=== PATIENT | female | born 1945 | race Caucasian/White ===

== ENCOUNTER 2021-03-30 17:03 | Inpatient (IN) ==
[2021-03-30] MEDS ORDERED: IOPAMIDOL 100 ML BOTTLE IV ONE ×2 (17:04→22:15)
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
[2021-03-30] MEDS: morphine 2 MG/ML VIAL IV ONE ×2 (17:38→17:40)
[2021-03-30] MEDS ORDERED: ACETAMINOPHEN 1,000 MG/100 ML BAG IV ONE (17:43)
[2021-03-30 18:27] LABS: Basophils # (Auto) 0.02 K/mcL (0.00-0.20); Basophils % (Auto) 0.2 % (0.0-2.0); Eosinophils # (Auto) 0.09 K/mcL (0.00-0.70); Eosinophils % (Auto) 0.8 % (0.0-7.0); Hematocrit 41.2 % (36.0-48.0); Hemoglobin 13.8 g/dL (12.0-15.0); Lymphocytes # (Auto) 1.26 K/mcL (1.50-4.80); Lymphocytes % (Auto) 11.9 % (15.0-49.0); Mean Corpuscular HGB Conc 33.5 g/dL (31.0-36.0); Mean Platelet Volume 9.4 fL (7.4-10.4); Monocytes # (Auto) 0.77 K/mcL (0.10-0.90); Monocytes % (Auto) 7.3 % (1.0-12.0); Neutrophils % (Auto) 79.8 % (38.0-78.0); Platelet Count 252 K/mcL (140-440); RBC 4.48 M/mcL (4.00-5.20); Red Cell Distribution Width 13.2 % (11.5-14.5); WBC 10.6 K/mcL (4.5-11.0)
[2021-03-30 18:50] LABS: Blood Urea Nitrogen 9 mg/dL (8-23); Calcium 9.1 mg/dL (8.6-10.4); Carbon Dioxide 22 mmol/L (22-30); Chloride 98 mmol/L (96-108); Glomerular Filtration Rate 94; Glucose 122 mg/dL (70-105)
[2021-03-30 19:06] LABS: INR 1.1 (0.9-1.1); Prothrombin Time 14.4 sec (11.9-14.5)
--- NOTE | 2021-03-30 20:40 | XRay Report ---
CLINICAL INFORMATION: Chest pain COMPARISON: 11/22/2018 FINDINGS: Moderate cardiomegaly is unchanged. Mediastinum and pulmonary vessels are normal. Small right basilar infiltrate with small right pleural effusion noted. IMPRESSION: Small right basilar infiltrate with small right pleural effusion Moderate cardiomegaly - stable Interpreted and Authenticated by: Faisal Shahid 03/30/21
--- NOTE | 2021-03-30 20:55 | Cat Scan Report ---
CLINICAL INFORMATION: Chest pain COMPARISON: None. TECHNIQUE: 80ml of Isovue-370 were injected intravenously. Using SmartPrep to maximize pulmonary artery opacification, .625mm helical slices were obtained from the lung apices through the lung bases. Following reconstruction, 2.5 mm sagittal, coronal, and axial reformations were processed. The exam was reviewed at mediastinal, lung, and bone windows. The exam was performed using radiation dose optimization techniques including, but not limited to, automated exposure control, adjustment of the mA and/or kV according to patient size and use of iterative reconstruction technique. FINDINGS: Mediastinal windows show moderate enlargement of the central pulmonary arteries consistent with pulmonary hypertension: the main pulmonary artery diameter 3.6 cm. Acute occlusive emboli within the interlobar and right lower lobe arteries with extension to the medial, posterior, lateral and anterior basilar segmental right lower lobe arteries. Subocclusive emboli extends to the posterior segment right upper lobe artery. On left side, occlusive emboli in the posterior basilar segment left lower lobe artery. The heart is moderately enlarged with asymmetric enlargement of the right atrium and ventricle suggesting elevated right heart pressures. The esophagus is grossly normal. There is no adenopathy in the mediastinal, hilar or axillary regions. Right hemithyroidectomy changes noted with asymmetric enlargement of the solitary left thyroid lobe. Left thyroid lobe is heterogeneous Pulmonary parenchymal windows show moderate patchy alveolar infiltrate in the right lower lobe with small right pleural effusion. There is subsegmental atelectasis in the left lower lobe. Mosaic perfusion pattern elevated lung volumes wall thickening the bronchi has underlying chronic bronchitis and bronchiolitis. Bone windows show mild chronic wedging throughout nearly all the vertebral bodies consistent with compression chronic compression fractures. Images should the superior abdomen show no abnormality. IMPRESSION: 1. Occlusive emboli in the right interlobar and lower lobe pulmonary arteries with extension into all of the right lower lobe segmental branches. There is also subocclusive embolus in the posterior segmental branch right upper lobe pulmonary artery. On the left side, there occlusive emboli in the posterior basilar segmental branch left lower lobe. Moderate central pulmonary artery enlargement with asymmetric leg enlargement of the right heart chambers is compatible elevated pulmonary artery pressures related emboli. Patient also has chronic bronchitis and bronchiolitis potentially contributing to pulmonary hypertension 2. Moderate patchy infiltrate right lower lobe with small right pleural effusion. Subsegmental atelectasis left lower lobe. Interpreted and Authenticated by: Faisal Shahid 03/30/21
[2021-03-30] MEDS ORDERED: ENOXAPARIN 30 MG/0.3 ML SYRINGE SQ STA (21:15)
[2021-03-30] MEDS ORDERED: ENOXAPARIN 100 MG/ML SYRINGE SQ ONE (21:19)
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
[2021-03-30] MEDS: 0.9 % SODIUM CHLORIDE 1,000 ML IV SCH ×3 (21:51→23:19)
[2021-03-30] MEDS ORDERED: 0.9 % SODIUM CHLORIDE 1,000 ML IV SCH ×2 (22:00→22:15)
[2021-03-30] MEDS ORDERED: ZOLPIDEM 5 MG TABLET PO PRN (22:15)
[2021-03-30] MEDS ORDERED: ONDANSETRON 4 MG ODT TABLET SL PRN (22:15)
[2021-03-30] MEDS ORDERED: ONDANSETRON 4 MG/2 ML VIAL IV PRN (22:15)
[2021-03-30] MEDS ORDERED: ALBUTEROL SULFATE 2.5 MG/3 ML NEBULIZER NEB PRN (22:15)
[2021-03-30] MEDS ORDERED: MAGNESIUM HYDROXIDE 30 ML ORAL.SUSP PO PRN (22:15)
[2021-03-30] MEDS ORDERED: ACETAMINOPHEN 325 MG TABLET PO PRN (22:15)
[2021-03-30] MEDS ORDERED: oxyCODONE HCL 5 MG TABLET PO ONE (22:53)
[2021-03-30] MEDS: oxyCODONE HCL 5 MG TABLET PO PRN (22:54)
[2021-03-30] MEDS: 0.9 % SODIUM CHLORIDE 10 ML SYRINGE IV SCH (22:59)
[2021-03-31] MEDS ORDERED: ZOLPIDEM 5 MG TABLET ONE (00:33)
[2021-03-31] MEDS: oxyCODONE HCL 5 MG TABLET PO PRN ×4 (02:11→20:42)
[2021-03-31] MEDS ORDERED: oxyCODONE HCL 5 MG TABLET PO ONE ×2 (02:12→05:15)
[2021-03-31] MEDS ORDERED: morphine 2 MG/ML VIAL ONE ×2 (02:57→07:06)
[2021-03-31] MEDS: morphine 2 MG/ML VIAL IV PRN ×3 (02:59→23:33)
[2021-03-31] MEDS: 0.9 % SODIUM CHLORIDE 10 ML SYRINGE IV SCH ×3 (05:06→20:39)
[2021-03-31 06:28] LABS: Basophils # (Auto) 0.03 K/mcL (0.00-0.20); Basophils % (Auto) 0.2 % (0.0-2.0); Eosinophils # (Auto) 0.05 K/mcL (0.00-0.70); Eosinophils % (Auto) 0.4 % (0.0-7.0); Hematocrit 42.3 % (36.0-48.0); Hemoglobin 13.3 g/dL (12.0-15.0); Lymphocytes # (Auto) 0.75 K/mcL (1.50-4.80); Lymphocytes % (Auto) 6.1 % (15.0-49.0); Mean Cell Volume 96.1 fL (80.0-100.0); Mean Corpuscular HGB Conc 31.4 g/dL (31.0-36.0); Mean Platelet Volume 10.6 fL (7.4-10.4); Monocytes # (Auto) 0.84 K/mcL (0.10-0.90); Monocytes % (Auto) 6.8 % (1.0-12.0); Neutrophils % (Auto) 86.5 % (38.0-78.0); Platelet Count 192 K/mcL (140-440); Red Cell Distribution Width 13.2 % (11.5-14.5); WBC 12.3 K/mcL (4.5-11.0)
[2021-03-31] MEDS: 0.9 % SODIUM CHLORIDE 1,000 ML IV SCH ×2 (07:01→08:52)
[2021-03-31 07:12] LABS: Blood Urea Nitrogen 9 mg/dL (8-23); Calcium 8.9 mg/dL (8.6-10.4); Carbon Dioxide 21 mmol/L (22-30); Chloride 105 mmol/L (96-108); Glomerular Filtration Rate 94; Glucose 108 mg/dL (70-105)
--- NOTE | 2021-03-31 07:14 | Internal Med Progress Note ---
SUBJECTIVE Subjective Patient information: Note initiated : 03/31/21 at 7:09 am Service Date, if different from initiated Date: Patient: Makeda Cheema 75 y/o F admitted on 03/30/21 for Rib pain. Chief Complaint: Chest pain Principal diagnosis: Acute occlusive PE Interval history: Patient still having right-sided chest pain. She did not sleep well last night. Blood pressure remained stable. No hypoxemia. Constitutional Vitals: Vital Signs Temp Pulse Resp BP Pulse Ox 97.3 F 90 20 112/59 92 03/31/21 05:04 03/31/21 05:04 03/31/21 05:04 03/31/21 05:04 03/31/21 05:04 Period Temp Pulse Resp BP Sys/Brown Pulse Ox Last 24 Hr 97.3 F-98.6 F 72-102 16-31 74-149/40-90 92-97 Intake and Output 03/30/21 03/31/21 03/31/21 21:59 05:59 13:59 Intake Total 100 600 Output Total 200 Balance 100 400 Weight 92.986 kg 92.986 kg Intake & Output: Intake & Output 03/30/21 03/31/21 03/31/21 21:59 05:59 13:59 Intake Total 100 600 Output Total 200 Balance 100 400 Weight 92.986 kg 92.986 kg Intake: IV 100 Oral 600 Output: Void Amount 200 Other: # Voids 1 Additional findings Additional findings: General: Pleasant obese female with BMI 37, Awake alert oriented x3. No apparent distress HEENT: PERRLA, moist mucous membrane. Anicteric sclera Lungs: Clear to auscultation bilaterally. No crackles rhonchi or rales. Cardiovascular: Regular rate and rhythm. S1 + S2, 3/6 systolic murmur. No gallop rub. No peripheral edema. No JVD GI: Abdomen soft, nontender, positive bowel sounds. No hepatosplenomegaly. No rebound tenderness. 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 Cranial nerves II through XII 12 grossly intact. Psychiatric: Normal mood and affect OBJ DATA Labs CBC & Chem 7: 03/31/21 05:14 03/31/21 05:14 Labs: Abnormal Lab Results 03/31/21 03/30/21 03/30/21 05:14 17:34 17:34 WBC 12.3 H MPV 10.6 H Neut % (Auto) 86.5 H 79.8 H Lymph % (Auto) 6.1 L 11.9 L Lymph # (Auto) 0.75 L 1.26 L Absolute Neutrophils 10.67 H 8.47 H D-Dimer Creatinine 0.5 L Glucose 122 H 03/30/21 17:33 WBC MPV Neut % (Auto) Lymph % (Auto) Lymph # (Auto) Absolute Neutrophils D-Dimer 3.07 H Creatinine Glucose Meds: Medications Acetaminophen (Acetaminophen 325 Mg Tablet) 650 mg PO Q6HP PRN; Protocol PRN Reason: Per Pain Protocol/Fever > 101 Albuterol Sulfate (Albuterol Sulfate 2.5 Mg/3 Ml Nebulizer) 2.5 mg NEB Q2HP PRN PRN Reason: Shortness Of Breath Enoxaparin Sodium (Enoxaparin 80 Mg/0.8 Ml Syringe) 93 mg SQ BID [facility] Sodium Chloride (Sodium Chloride 0.9%) 1,000 mls @ 100 mls/hr IV .Q10H [facility] Last Admin: 03/30/21 21:54 Dose: 100 mls/hr Documented by: Levothyroxine Sodium (Levothyroxine 100 Mcg Tablet) 100 mcg PO QDAY [facility] Magnesium Hydroxide (Magnesium Hydroxide 30 Ml Oral.Susp) 30 ml PO DAILYP PRN PRN Reason: Constipation Morphine Sulfate (Morphine 2 Mg/Ml Vial) 2 mg IV Q4HP PRN; Protocol PRN Reason: Per Pain Protocol Last Admin: 03/31/21 02:59 Dose: 2 mg Documented by: Non-Formulary Medication (Aspirin [Adult Low Dose Aspirin]) 81 mg PO QDAY [facility] Ondansetron HCl (Ondansetron 4 Mg/2 Ml Vial) 4 mg IV Q6HP PRN PRN Reason: Nausea And Vomiting Ondansetron HCl (Ondansetron 4 Mg Odt Tablet) 4 mg SL Q6HP PRN PRN Reason: Nausea And Vomiting Oxycodone HCl (Oxycodone Hcl 5 Mg Tablet) 5 mg PO Q4HP PRN; Protocol PRN Reason: Per Pain Protocol Last Admin: 03/31/21 05:15 Dose: 5 mg Documented by: Pravastatin Sodium (Pravastatin 40 Mg Tablet) 40 mg PO QHS [facility] Sodium Chloride (0.9 % Sodium Chloride 10 Ml Syringe) 10 ml IV Q8 [facility] Last Admin: 03/31/21 05:06 Dose: Not Given Documented by: Zolpidem Tartrate (Zolpidem 5 Mg Tablet) 5 mg PO HSP PRN PRN Reason: Insomnia Last Admin: 03/31/21 00:32 Dose: 5 mg Documented by: A/P Narrative A/P Narrative: 75 years old female with obesity BMI 37, HTN, HLP presented with chest pain. #Acute Segmental occlusive Pulmonary embolus - CTA chset :Occlusive R interlobar & lower lobe PE with extension into all RLL segmental branches, sub occlusive embolus in posterior segmental branch RUL . Left occlusive PE posterior basilar segmental branch LLL. Moderate central pulmonary artery enlargement w asymmetric enlargement of right heart chambers is compatible elevated pulmonary artery pressures related emboli. - Unprovoked. Patient received [employer] COVID-19 vaccination October 2020. Her breast and uterine cancer on remission. -Initially hypotensive with systolic blood pressure 88. Currently SBP is ~100. Currently hemodynamically stable on room air - No hypoxia. No recent surgery. No recent travel. Patient require full malignancy work-up including colonoscopy, CT scan abdomen and pelvis and mammogram as outpatient. Consider hypercoagulable work-up -Started Lovenox 1 mg/kg every 12 hours. Pending echocardiogram. Monitor on telemetry telemetry -Check CT scan abdomen/pelvis with contrast after 24 hours since she already received IV contrast. Cont NS at 100/h due to soft blood pressure x 1500 -Can switch to Eliquis 10 mg p.o. twice daily X 7 days then 5 mg twice daily and treat at least 6 months. Further treatment depends on further work-up # Hx of breast cancer 2010. Status post right lumpectomy, XRT, chemotherapy. -On remission. Outpatient follow-up with oncologist #History of uterine cancer 2007 -Status post hysterectomy/oophorectomy, XRT -Check CT scan abdomen/pelvis with IV contrast as above #Chronic atrial fibrillation. Rate is controlled. - S/p watchman device. #Essential hypertension -Cont to Hold lisinopril since blood pressure is at the lower side resume once blood pressure improved #Hyperlipidemia: Resume home statin #Obesity with BMI 37.5 DVT PPX: Lovenox full dose Code Status : Full code Disposition: Inpatient Plan of care discussed with patient and RN Time Spent With Patient Time: Total time spent is greater than 50% in coordination of care (as documented) at patient's floor/unit and/or counseling patient: QUALITY VTE Deep Vein Thrombosis/Pulmonary Embolism Present on Admission: No
[2021-03-31] MEDS: LEVOTHYROXINE 100 MCG TABLET PO SCH (07:59)
[2021-03-31] MEDS: ASPIRIN 81 MG TAB.CHEW PO SCH (07:59)
[2021-03-31] MEDS: ENOXAPARIN 100 MG/ML SYRINGE SQ SCH ×2 (08:52→20:38)
[2021-03-31] MEDS ORDERED: NON FORMULARY MEDICATION 1 DOSE MISCELL (Aspirin [Adult Low Dose Aspirin] 81 mg tablet,del PO SCH (09:00)
[2021-03-31] MEDS ORDERED: LEVOTHYROXINE 100 MCG TABLET PO SCH (09:00)
--- NOTE | 2021-03-31 12:32 | Internal Med Progress Note ---
SUBJECTIVE Subjective Patient information: Note initiated : 03/31/21 at 12:23 pm Service Date, if different from initiated Date: [] Patient: Makeda Cheema 75 y/o F admitted on 03/30/21 for Rib pain. Chief Complaint: [] Principal diagnosis: Acute occlusive PE Interval history: History of present illness: Ms. Cheema is a very pleasant 75 years old female with past medical history significant for HTN, HLP, chronic atrial fibrillation s/p watchman device placement 06/2020, history of breast cancer 2010 s/p patient denies shortness of breath. She has no fever or chills. Lumpectomy, chemotherapy and radiation therapy and uterine cancer status post total hysterectomy/XRT presented to emergency room with 3 weeks right-sided chest pain. Patient thought she pulled a muscle. Pain is continuous. No relieving or aggravating factor. Patient had no previous history of blood clot. She denies recent surgeries/long travel. She has no weight loss. Per her statement her cancer are in remission and she has close follow-up with oncologist. Her colonoscopy is up-to-date as well. In the emergency room patient had a CT angiogram of the chest which showed multi segmental occlusive PEs. 03/31 Patient still having right-sided chest pain. She did not sleep well last night. Blood pressure remained stable. No hypoxemia. 04/01 Constitutional Vitals: Vital Signs Temp Pulse Resp BP Pulse Ox 98.9 F 88 20 117/82 92 03/31/21 07:54 03/31/21 07:54 03/31/21 07:54 03/31/21 07:54 03/31/21 07:54 Period Temp Pulse Resp BP Sys/Brown Pulse Ox Last 24 Hr 97.3 F-98.9 F 72-102 16-31 74-149/40-90 92-97 Intake and Output 03/30/21 03/31/21 03/31/21 21:59 05:59 13:59 Intake Total 579 775 5406 Output Total 200 Balance 032 000 5570 Weight 92.986 kg 92.986 kg Intake & Output: Intake & Output 03/30/21 03/31/21 03/31/21 21:59 05:59 13:59 Intake Total 273 089 6428 Output Total 200 Balance 612 271 0761 Weight 92.986 kg 92.986 kg Intake: IV 100 1000 Sodium Chloride 0.9% 1,000 ml @ 1000 100 mls/hr IV .Q10H [facility] Rx#: [id number] Oral 600 Output: Void Amount 200 Other: # Voids 1 Exam: General: Alert, Awake, No acute Distress, obese Eyes/N/T: EOMI, Head/Neck: neck supple, CV: RRR, 3/6 SM, Pulm: Clear b/l, no wheezing/rhonchi/rales Abd: soft, nontender, +BS x4 Ext: no clubbing/cyanosis/edema Neuro: Alert, no focal deficits, moves all extremities, Skin: warm/dry OBJ DATA Labs CBC & Chem 7: 03/31/21 05:14 03/31/21 05:14 Labs: Abnormal Lab Results 03/31/21 03/31/21 03/30/21 05:14 05:14 17:34 WBC 12.3 H MPV 10.6 H Neut % (Auto) 86.5 H Lymph % (Auto) 6.1 L Lymph # (Auto) 0.75 L Absolute Neutrophils 10.67 H D-Dimer Carbon Dioxide 21 L Creatinine 0.5 L 0.5 L Glucose 108 H 122 H 03/30/21 03/30/21 17:34 17:33 WBC MPV Neut % (Auto) 79.8 H Lymph % (Auto) 11.9 L Lymph # (Auto) 1.26 L Absolute Neutrophils 8.47 H D-Dimer 3.07 H Carbon Dioxide Creatinine Glucose Meds: Medications Acetaminophen (Acetaminophen 325 Mg Tablet) 650 mg PO Q6HP PRN; Protocol PRN Reason: Per Pain Protocol/Fever > 101 Albuterol Sulfate (Albuterol Sulfate 2.5 Mg/3 Ml Nebulizer) 2.5 mg NEB Q2HP PRN PRN Reason: Shortness Of Breath Apixaban (Apixaban 5 Mg Tablet) 10 mg PO BID [facility] Stop: 04/07/21 21:01 Aspirin (Aspirin 81 Mg Tab.Chew) 81 mg PO DAILY [facility] Last Admin: 03/31/21 07:59 Dose: 81 mg Documented by: Enoxaparin Sodium (Enoxaparin 100 Mg/Ml Syringe) 100 mg SQ BID [facility] Stop: 03/31/21 21:01 Last Admin: 03/31/21 08:52 Dose: 100 mg Documented by: Sodium Chloride (Sodium Chloride 0.9%) 1,000 mls @ 100 mls/hr IV .Q10H [facility] Stop: 03/31/21 18:00 Last Admin: 03/31/21 08:52 Dose: 100 mls/hr Documented by: Levothyroxine Sodium (Levothyroxine 100 Mcg Tablet) 100 mcg PO ACB [facility] Last Admin: 03/31/21 07:59 Dose: 100 mcg Documented by: Magnesium Hydroxide (Magnesium Hydroxide 30 Ml Oral.Susp) 30 ml PO DAILYP PRN PRN Reason: Constipation Morphine Sulfate (Morphine 2 Mg/Ml Vial) 2 mg IV Q4HP PRN; Protocol PRN Reason: Per Pain Protocol Last Admin: 03/31/21 02:59 Dose: 2 mg Documented by: Ondansetron HCl (Ondansetron 4 Mg/2 Ml Vial) 4 mg IV Q6HP PRN PRN Reason: Nausea And Vomiting Ondansetron HCl (Ondansetron 4 Mg Odt Tablet) 4 mg SL Q6HP PRN PRN Reason: Nausea And Vomiting Oxycodone HCl (Oxycodone Hcl 5 Mg Tablet) 5 mg PO Q4HP PRN; Protocol PRN Reason: Per Pain Protocol Last Admin: 03/31/21 08:56 Dose: 5 mg Documented by: Simvastatin (Simvastatin 20 Mg Tablet) 20 mg PO HS [facility] Sodium Chloride (0.9 % Sodium Chloride 10 Ml Syringe) 10 ml IV Q8 [facility] Last Admin: 03/31/21 05:06 Dose: Not Given Documented by: Zolpidem Tartrate (Zolpidem 5 Mg Tablet) 5 mg PO HSP PRN PRN Reason: Insomnia Last Admin: 03/31/21 00:32 Dose: 5 mg Documented by: A/P Narrative A/P Narrative: 75 years old female with obesity BMI 37, HTN, HLP presented with chest pain. #Acute b/l Segmental occlusive Pulmonary embolus: Initially hypotensive. Now hemodynamically stable on room air - Unprovoked, although obesity is risk factor, ?sedentary. Received [employer] COVID-19 vaccination October 2020 -h/o breast/uterine cancer on remission. - No hypoxia. No recent surgery. No recent travel. -pending CT a/p eval for malignancy/mets. f/u outpt for colonoscopy/mammogram -eliquis started -echo pending # Hx of breast cancer 2010. Status post right lumpectomy, XRT, chemotherapy. -On remission. Outpatient follow-up with oncologist #History of uterine cancer 2007 -Status post hysterectomy/oophorectomy, XRT #Chronic atrial fibrillation. Rate is controlled. - S/p watchman device. #Essential hypertension -Cont to Hold lisinopril for low-normal BP, resume once blood pressure improved #Hyperlipidemia: Resume home statin #Obesity with BMI 37.5 #Hypothyroid: DVT PPX:eliquis Code Status : Full code Time Spent With Patient Time: Total time spent is greater than 50% in coordination of care (as documented) at patient's floor/unit and/or counseling patient: QUALITY VTE Deep Vein Thrombosis/Pulmonary Embolism Present on Admission: No
--- NOTE | 2021-03-31 12:35 | Discharge Summary ---
Discharge Provider Provider Patient information: Note initiated : 03/31/21 at 12:33 pm Service Date, if different from initiated Date: [] Patient: Makeda Cheema 75 y/o F admitted on 03/30/21 for Rib pain. Chief Complaint: [] Date of admission: 03/30/21 22:15 Discharge date: 04/01/21 Primary care physician: Faisal Kim DO Consults: 03/30/21 Consult to Physician [CONS] Stat Comment: Consulting Provider: Pascual Cota Reason For Exam: Physician to Consult Discharge Meds Discharge Medications Home Medications Calcium 500 + D Oral 1 cap PO DAILY 06/08/19 [History Confirmed 03/30/21 Last Taken 03/30/21 08:00] xtqwztyg-gthynmf-idlj-lutein tablet 1 tab PO DAILY tab 06/08/19 [History Confirmed 03/30/21 Last Taken 03/30/21 08:00] levothyroxine 100 mcg tablet 100 mcg PO QDAY #90 tab 05/13/20 [Rx Confirmed 03/30/21 Last Taken 03/30/21 07:00] pravastatin 40 mg tablet 40 mg PO QHS #90 tab 05/13/20 [Rx Confirmed 03/30/21 Last Taken 03/30/21 16:00] ibandronate 150 mg tablet 150 mg PO QMONTH #3 tab 06/10/20 [Rx Confirmed 03/30/21 Last Taken 03/30/21 08:00] vitamins A,C,T-hqto-qrmurl 14,320 unit-226 mg-200 unit capsule 1 cap PO QDAY cap 03/06/21 [History Confirmed 03/30/21 Last Taken 03/30/21 08:00] apixaban [Eliquis] 10 mg PO BID #90 tab 03/31/21 [Rx Last Taken Unknown] docusate sodium [Colace] 100 mg PO BID #60 cap 04/01/21 [Rx Last Taken Unknown] hydrocodone-acetaminophen 1 tab PO Q4-6HP PRN #15 tab 04/01/21 [Rx Last Taken Unknown] polyethylene glycol 3350 [Miralax] 17 g PO QDAY #119 g 04/01/21 [Rx Last Taken Unknown] sennosides 15 mg PO QDAY PRN #30 tab 04/01/21 [Rx Last Taken Unknown] COURSE Hospital Course Hospital course: Interval history: History of present illness: Ms. Cheema is a very pleasant 75 years old female with past medical history significant for HTN, HLP, chronic atrial fibrillation s/p watchman device placement 06/2020, history of breast cancer 2010 s/p patient denies shortness of breath. She has no fever or chills. Lumpectomy, chemotherapy and radiation therapy and uterine cancer status post total hysterectomy/XRT presented to emergency room with 3 weeks right-sided chest pain. Patient thought she pulled a muscle. Pain is continuous. No relieving or aggravating factor. Patient had no previous history of blood clot. She denies recent surgeries/long travel. She has no weight loss. Per her statement her cancer are in remission and she has close follow-up with oncologist. Her colonoscopy is up-to-date as well. In the emergency room patient had a CT angiogram of the chest which showed multi segmental occlusive PEs. 03/31 Patient still having right-sided chest pain. She did not sleep well last night. Blood pressure remained stable. No hypoxemia. 04/01 Patient does have right-sided pleuritic chest pain but overall improved. Denies coughing or shortness of breath. No overnight event or new complaints. Started on Eliquis. A: #Acute b/l Segmental occlusive Pulmonary embolus: Initially hypotensive. Now hemodynamically stable on room air - Unprovoked, although obesity is risk factor, ?sedentary. Received Pf[employer] COVID-19 vaccination October 2020 -h/o breast/uterine cancer on remission. -No recent surgery. No recent travel. -pending CT a/p eval for malignancy/mets. f/u outpt for colonoscopy, had mammogram in August -eliquis started -echo pending # Hx of breast cancer 2010. Status post right lumpectomy, XRT, chemotherapy. -On remission. Outpatient follow-up with oncologist #History of uterine cancer 2007 -Status post hysterectomy/oophorectomy, XRT #Chronic atrial fibrillation. Rate is controlled. - S/p watchman device. #Essential hypertension: low during admit -Monitor blood pressure twice daily at home and bring log to PCP. Lisinopril held for low blood pressure. Call PCP if systolic blood pressure greater than 140 consistently. Discharge diagnosis: Pulmonary embolism Secondary discharge diagnosis: History of breast and uterine cancer chronic A. fib hypertension hypothyroidism obesity Time Spent with Patient Time attestation: Total time spent providing and/or coordinating discharge services: Time spent: Greater than 30 minutes EXAM Constitutional Vitals: Temp Pulse Resp BP Pulse Ox 98.9 F 88 20 117/82 92 03/31/21 07:54 03/31/21 07:54 03/31/21 07:54 03/31/21 07:54 03/31/21 07:54 Discharge Data Data Completed and Pending Labs on day of discharge: Labs from last 24 hours 03/31/21 03/31/21 03/30/21 05:14 05:14 17:34 WBC 12.3 H RBC 4.40 Hgb 13.3 Hct 42.3 MCV 96.1 MCH 30.2 MCHC 31.4 RDW 13.2 Plt Count 192 MPV 10.6 H Neut % (Auto) 86.5 H Lymph % (Auto) 6.1 L [place] % (Auto) 6.8 Eos % (Auto) 0.4 Baso % (Auto) 0.2 Lymph # (Auto) 0.75 L [place] # (Auto) 0.84 Eos # (Auto) 0.05 Baso # (Auto) 0.03 Absolute Neutrophils 10.67 H PT INR D-Dimer Sodium 135 Potassium 4.5 Chloride 105 Carbon Dioxide 21 L Anion Gap 9.0 BUN 9 Creatinine 0.5 L GFR Calculation 94 Glucose 108 H Calcium 8.9 Troponin T < 0.01 03/30/21 03/30/21 03/30/21 17:34 17:34 17:33 WBC 10.6 RBC 4.48 Hgb 13.8 Hct 41.2 MCV 92.0 MCH 30.8 MCHC 33.5 RDW 13.2 Plt Count 252 MPV 9.4 Neut % (Auto) 79.8 H Lymph % (Auto) 11.9 L [place] % (Auto) 7.3 Eos % (Auto) 0.8 Baso % (Auto) 0.2 Lymph # (Auto) 1.26 L [place] # (Auto) 0.77 Eos # (Auto) 0.09 Baso # (Auto) 0.02 Absolute Neutrophils 8.47 H PT 14.4 INR 1.1 D-Dimer 3.07 H Sodium 135 Potassium 4.5 Chloride 98 Carbon Dioxide 22 Anion Gap 15.0 BUN 9 Creatinine 0.5 L GFR Calculation 94 Glucose 122 H Calcium 9.1 Troponin T Discharge Plan Patient/Caregiver Discharge Instructions Activity: increase activity as tolerated Diet: Regular Diet Activity Restrictions/Additional Instructions: Follow-up with PCP for colonoscopy. Monitor blood pressure twice daily and bring log to PCP. Lisinopril held for low blood pressure. Call PCP if systolic blood pressure greater than 140 consis tently. Prescriptions: New Eliquis 5 mg Tablet 10 mg PO BID Qty: 90 RF: 0 hydrocodone-acetaminophen 5-325 mg Tablet 1 tab PO Q4-6HP PRN (Reason: Per Pain Protocol) Qty: 15 RF: 0 docusate sodium [Colace] 100 mg capsule 100 mg PO BID Qty: 60 RF: 0 polyethylene glycol 3350 [Miralax] 17 gram/dose powder 17 g PO QDAY Qty: 119 RF: 0 sennosides 15 mg tablet 15 mg PO QDAY PRN (Reason: constipation) Qty: 30 RF: 0 Continued pravastatin 40 mg tablet 40 mg PO QHS Qty: 90 RF: 3 levothyroxine 100 mcg tablet 100 mcg PO QDAY Qty: 90 RF: 3 ibandronate 150 mg tablet 150 mg PO QMONTH Qty: 3 RF: 3 Calcium 500 + D Oral 1 cap PO DAILY RF: 0 PreserVision AREDS 14,320-226-200 jjcp-ri-lxiz capsule 1 cap PO QDAY RF: 0 mcoqmspo-yztqsrg-qyms-lutein tablet 1 tab PO DAILY RF: 0 Discontinued lisinopril 10 mg tablet 10 mg PO QDAY Qty: 90 RF: 3 aspirin [Adult Low Dose Aspirin] 81 mg tablet,delayed release (DR/EC) 81 mg PO QDAY RF: 0 Follow Up Plan Follow up with: Faisal Kim DO [Primary Care Provider] - 04/03/21 3:15 pm Patient Disposition: Home Health Service Prognosis: Fair Overall status at discharge: patient is progressing back to baseline Discharge Orders: Discharge Order (Routine); Ordered 04/01/21 Ordered By: Bryson COCHRAN VTE Deep Vein Thrombosis/Pulmonary Embolism Present on Admission: No
--- NOTE | 2021-03-31 14:42 | EKG ---
[facility] Test Date: 2021-03-30 Pat Name: Makeda Cheema Department: ED Room: Gender: Female Grant Officer: wenceslao : 1945 Requested By: Nilton Faith Order Number: [id number] Reading MD: Jas Lima M.D. Measurements Intervals [place] Rate: 106 P: CO: QRS: -21 QRSD: 80 T: -2 QT: 318 QTc: 423 Interpretive Statements Atrial fibrillation Ventricular premature complex Borderline T abnormalities, inferior leads ABNORMAL ECG Electronically Signed On 03-31-2021 14:42:25 PDT by Jas Lima M.D. /store/[email or web address]/[id number]
[2021-03-31] MEDS ORDERED: PRAVASTATIN 40 MG TABLET PO SCH (21:00)
[2021-03-31] MEDS ORDERED: SIMVASTATIN 20 MG TABLET PO SCH (21:00)
[2021-04-01] MEDS: oxyCODONE HCL 5 MG TABLET PO PRN (05:57)
[2021-04-01 06:26] LABS: Basophils # (Auto) 0.02 K/mcL (0.00-0.20); Basophils % (Auto) 0.2 % (0.0-2.0); Eosinophils # (Auto) 0.05 K/mcL (0.00-0.70); Eosinophils % (Auto) 0.4 % (0.0-7.0); Hematocrit 39.5 % (36.0-48.0); Hemoglobin 12.4 g/dL (12.0-15.0); Lymphocytes % (Auto) 5.6 % (15.0-49.0); Mean Cell Volume 94.7 fL (80.0-100.0); Mean Corpuscular HGB Conc 31.4 g/dL (31.0-36.0); Mean Platelet Volume 9.2 fL (7.4-10.4); Monocytes # (Auto) 1.05 K/mcL (0.10-0.90); Monocytes % (Auto) 8.4 % (1.0-12.0); Neutrophils % (Auto) 85.4 % (38.0-78.0); Platelet Count 236 K/mcL (140-440); RBC 4.17 M/mcL (4.00-5.20); WBC 12.5 K/mcL (4.5-11.0)
[2021-04-01 06:50] LABS: Blood Urea Nitrogen 7 mg/dL (8-23); Calcium 8.2 mg/dL (8.6-10.4); Carbon Dioxide 22 mmol/L (22-30); Chloride 102 mmol/L (96-108); Glomerular Filtration Rate 89; Glucose 93 mg/dL (70-105)
--- NOTE | 2021-04-01 06:56 | Internal Med Progress Note ---
SUBJECTIVE Subjective Patient information: Note initiated : 04/01/21 at 6:53 am Service Date, if different from initiated Date: [] Patient: Makeda Cheema 75 y/o F admitted on 03/30/21 for Rib pain. Chief Complaint: [] Principal diagnosis: Acute occlusive PE Interval history: History of present illness: Ms. Cheema is a very pleasant 75 years old female with past medical history significant for HTN, HLP, chronic atrial fibrillation s/p watchman device placement 06/2020, history of breast cancer 2010 s/p patient denies shortness of breath. She has no fever or chills. Lumpectomy, chemotherapy and radiation therapy and uterine cancer status post total hysterectomy/XRT presented to emergency room with 3 weeks right-sided chest pain. Patient thought she pulled a muscle. Pain is continuous. No relieving or aggravating factor. Patient had no previous history of blood clot. She denies recent surgeries/long travel. She has no weight loss. Per her statement her cancer are in remission and she has close follow-up with oncologist. Her colonoscopy is up-to-date as well. In the emergency room patient had a CT angiogram of the chest which showed multi segmental occlusive PEs. 7 Patient still having right-sided chest pain. She did not sleep well last night. Blood pressure remained stable. No hypoxemia. 7/ Patient does have right-sided pleuritic chest pain but overall improved. Denies coughing or shortness of breath. No overnight event or new complaints. Started on Eliquis. Review of Systems: denies headache/fever/chills/nausea/vomiting/chest or abdominal pain/diarrhea. Otherwise see above. Constitutional Vitals: Vital Signs Temp Pulse Resp BP Pulse Ox 99.4 F H 106 H 18 113/75 90 04/01/21 03:20 04/01/21 03:20 04/01/21 03:20 04/01/21 03:20 04/01/21 03:20 Period Temp Pulse Resp BP Sys/Brown Pulse Ox Last 24 Hr 98.0 F-99.4 F 84-106 18-20 113-138/73-90 90-95 Intake and Output 03/31/21 04/01/21 04/01/21 21:59 05:59 13:59 Intake Total 1000 150 Balance 1000 150 Weight 94.393 kg Intake & Output: Intake & Output 03/31/21 04/01/21 04/01/21 21:59 05:59 13:59 Intake Total 1000 150 Balance 1000 150 Weight 94.393 kg Intake: IV 1000 Sodium Chloride 0.9% 1,000 ml @ 1000 100 mls/hr IV .Q10H [facility] Rx#: [id number] Oral 150 Other: # Voids 1 1 Exam: General: Alert, Awake, No acute Distress, obese Eyes/N/T: EOMI, Head/Neck: neck supple, CV: irreg irreg, 3/6 SM, Pulm: Clear b/l, no wheezing/rhonchi/rales Abd: soft, nontender, +BS x4 Ext: no clubbing/cyanosis/edema Neuro: Alert, no focal deficits, moves all extremities, Skin: warm/dry OBJ DATA Labs CBC & Chem 7: 04/01/21 05:14 04/01/21 05:13 Labs: Abnormal Lab Results 04/01/21 04/01/21 03/31/21 05:14 05:13 05:14 WBC 12.5 H MPV Neut % (Auto) 85.4 H Lymph % (Auto) 5.6 L Lymph # (Auto) 0.70 L [place] # (Auto) 1.05 H Absolute Neutrophils 10.67 H D-Dimer Carbon Dioxide 21 L BUN 7 L Creatinine 0.5 L Glucose 108 H Calcium 8.2 L 03/31/21 03/30/21 03/30/21 05:14 17:34 17:34 WBC 12.3 H MPV 10.6 H Neut % (Auto) 86.5 H 79.8 H Lymph % (Auto) 6.1 L 11.9 L Lymph # (Auto) 0.75 L 1.26 L [place] # (Auto) Absolute Neutrophils 10.67 H 8.47 H D-Dimer Carbon Dioxide BUN Creatinine 0.5 L Glucose 122 H Calcium 03/30/21 17:33 WBC MPV Neut % (Auto) Lymph % (Auto) Lymph # (Auto) [place] # (Auto) Absolute Neutrophils D-Dimer 3.07 H Carbon Dioxide BUN Creatinine Glucose Calcium Meds: Medications Acetaminophen (Acetaminophen 325 Mg Tablet) 650 mg PO Q6HP PRN; Protocol PRN Reason: Per Pain Protocol/Fever > 101 Albuterol Sulfate (Albuterol Sulfate 2.5 Mg/3 Ml Nebulizer) 2.5 mg NEB Q2HP PRN PRN Reason: Shortness Of Breath Apixaban (Apixaban 5 Mg Tablet) 10 mg PO BID [facility] Stop: 04/07/21 21:01 Aspirin (Aspirin 81 Mg Tab.Chew) 81 mg PO DAILY [facility] Last Admin: 03/31/21 07:59 Dose: 81 mg Documented by: Levothyroxine Sodium (Levothyroxine 100 Mcg Tablet) 100 mcg PO ACB [facility] Last Admin: 03/31/21 07:59 Dose: 100 mcg Documented by: Magnesium Hydroxide (Magnesium Hydroxide 30 Ml Oral.Susp) 30 ml PO DAILYP PRN PRN Reason: Constipation Morphine Sulfate (Morphine 2 Mg/Ml Vial) 2 mg IV Q4HP PRN; Protocol PRN Reason: Per Pain Protocol Last Admin: 03/31/21 23:33 Dose: 2 mg Documented by: Ondansetron HCl (Ondansetron 4 Mg/2 Ml Vial) 4 mg IV Q6HP PRN PRN Reason: Nausea And Vomiting Last Admin: 03/31/21 16:51 Dose: 4 mg Documented by: Ondansetron HCl (Ondansetron 4 Mg Odt Tablet) 4 mg SL Q6HP PRN PRN Reason: Nausea And Vomiting Oxycodone HCl (Oxycodone Hcl 5 Mg Tablet) 5 mg PO Q4HP PRN; Protocol PRN Reason: Per Pain Protocol Last Admin: 04/01/21 05:57 Dose: 5 mg Documented by: Simvastatin (Simvastatin 20 Mg Tablet) 20 mg PO HS [facility] Last Admin: 03/31/21 20:37 Dose: 20 mg Documented by: Sodium Chloride (0.9 % Sodium Chloride 10 Ml Syringe) 10 ml IV Q8 [facility] Last Admin: 03/31/21 20:39 Dose: 10 ml Documented by: Zolpidem Tartrate (Zolpidem 5 Mg Tablet) 5 mg PO HSP PRN PRN Reason: Insomnia Last Admin: 03/31/21 00:32 Dose: 5 mg Documented by: A/P Narrative A/P Narrative: A: #Acute b/l Segmental occlusive Pulmonary embolus: Initially hypotensive. Now hemodynamically stable on room air - Unprovoked, although obesity is risk factor, ?sedentary. Received [email or web address] COVID-19 vaccination October 2020 -h/o breast/uterine cancer on remission. -No recent surgery. No recent travel. -pending CT a/p eval for malignancy/mets. f/u outpt for colonoscopy, had mammogram in August -eliquis started -echo pending # Hx of breast cancer 2010. Status post right lumpectomy, XRT, chemotherapy. -On remission. Outpatient follow-up with oncologist #History of uterine cancer 2007 -Status post hysterectomy/oophorectomy, XRT #Chronic atrial fibrillation. Rate is controlled. - S/p watchman device. #Essential hypertension -Cont to Hold lisinopril for low-normal BP, resume once blood pressure improved #Hyperlipidemia: Resume home statin #Obesity with BMI 37.5 #Hypothyroid: DVT PPX:eliquis Code Status : Full code Time Spent With Patient Time: Total time spent is greater than 50% in coordination of care (as documented) at patient's floor/unit and/or counseling patient: QUALITY VTE Deep Vein Thrombosis/Pulmonary Embolism Present on Admission: No
[2021-04-01] MEDS: ASPIRIN 81 MG TAB.CHEW PO SCH (07:00)
[2021-04-01] MEDS: 0.9 % SODIUM CHLORIDE 10 ML SYRINGE IV SCH ×2 (07:00→13:04)
[2021-04-01] MEDS: LEVOTHYROXINE 100 MCG TABLET PO SCH (07:06)
[2021-04-01] MEDS ORDERED: IOPAMIDOL 100 ML BOTTLE IV ONE (08:53)
[2021-04-01] MEDS ORDERED: APIXABAN 5 MG TABLET PO SCH (09:00)
[2021-04-01] MEDS ORDERED: HYDROcodone/APAP 5/325MG TABLET PO PRN (09:22)
[2021-04-01] MEDS ORDERED: HYDROcodone/APAP 5/325MG TABLET PO ONE (09:22)
[2021-04-01] MEDS ORDERED: SENNOSIDES 1 TABLET PO SCH (10:01)
[2021-04-01] MEDS ORDERED: POLYETHYLENE GLYCOL 3350 17 GM PACKET PO PRN (10:01)
[2021-04-01] MEDS ORDERED: SENNOSIDES 1 TABLET PO ONE (12:54)
--- NOTE | 2021-04-01 14:36 | Cat Scan Report ---
Indication: Pulmonary embolus. Query occult malignancy. TECHNIQUE: CT imaging abdomen and pelvis hypoosmolar nonionic intravenous contrast media. Reformatted imaging included. COMPARISON: CT chest 30 March 2021. FINDINGS: Patchy infiltrate right lower lobe unchanged. Mild right lower lobe bronchiectasis. Parenchyma scarring on the left. Small right-sided layering pleural effusion AP diameter 2.5 cm. Abdomen and pelvis: Heterogenous attenuation liver without solid intrahepatic mass. Prior cholecystectomy. Tiny incompletely evaluated low attenuating focus posterior segment right hepatic lobe 5 mm image 30 series 3. Parapelvic cysts both kidneys. Cortical cyst right kidney. No urinary tract calculi. Adrenal glands unremarkable. Pancreas partially fatty replaced. Normal spleen. Stomach unremarkable. Small bowel normal in caliber normal contrast enhancement pattern. Surgical clips midline abdominal mesentery. Incidental note circumaortic left renal vein. Ventral abdominal wall herniorrhaphy without recurrent hernia. Large bowel is stool filled. Within the limitations of stool filled bowel there is no mass although incompletely evaluated. No appendicitis. Osseous structures: No focal concerning osseous lesions. IMPRESSION: Stool-filled large bowel limits evaluation for large bowel mass. Better evaluated with colonoscopy. Multiple incidental findings without evidence of intra-abdominal/intrapelvic malignancy as queried. Interpreted and Authenticated by: Esteban Serna M.D. 04/01/21
== END 2021-04-01 16:18 | disposition home health service (06) | DRG 176 ==
LOC: ED 17:03 → MEDSUR 17:03 → OBSVTOIN 22:06 → MEDSUR 22:06
PROVIDERS: ADMIT Internal Medicine; ATTEND Internal Medicine